=== PATIENT | male | born 1960 | race Caucasian/White ===

== ENCOUNTER 2020-01-27 10:48 | Emergency (ER) | payer MEDICARE, SELFPAY ==
[2020-01-27 11:04] VITALS: BP 147/92; PULSE 84; RESP 20; TEMP 36.4; O2SAT 100
--- NOTE | 2020-01-27 11:18 | ED.SKABFB ---
HPI - Skin/Abscess/Foreign Bdy General Chief complaint: Skin/Abscess/Foreign Body Stated complaint: Rash all over History of Present Illness HPI narrative: Patient is transition from [place] to here. Patient sister showed picture of past skin issues and states that he has been diagnosised with eczema Related Data Home Medications Medication Instructions Recorded Confirmed amlodipine 5 mg PO DAILY 01/27/20 01/27/20 aspirin 325 mg PO DAILY 01/27/20 01/27/20 atorvastatin 80 mg PO DAILY 01/27/20 01/27/20 triamcinolone acetonide 1 applic TOPICAL QID 01/27/20 01/27/20 Allergies Allergy/AdvReac Type Severity Reaction Status Date / Time No Known Allergies Allergy Verified 01/27/20 11:24 Review of Systems Review of Systems: Narrative: CONSTITUTIONAL: Denies fever, chills, or sweats. EYES: Denies visual changes, redness, or discharge. ENT: Denies rhinorrhea, congestion, sore throat, or otalgia. CARDIOVASCULAR:Denies chest pain, palpitations, or edema. RESPIRATORY: Denies cough or dyspnea. GASTROINTESTINAL: Denies abdominal pain, nausea, vomiting, or diarrhea. GENITOURINARY: Denies dysuria or hematuria. SKIN:positive rash or itching. MUSCULOSKELETAL:Denies back pain, joint pain, or myalgia. NEUROLOGIC: Denies headache, numbness, or weakness. PSYCHIATRIC:Denies anxiety or depression Just PMFSH Comments At time as signature, I have reviewed and agree with nursing past medical, social, surgical and family history. Please see nursing chart for further information. There is no relevant family history pertinent to the presenting complaint. Exam Narrative: Exam Narrative: GENERAL:Well-appearing, well-nourished, and in no acute distress. HEAD:Normocephalic, atraumatic. EYES: PERRLA and EOMI. ENT: Nares clear, no rhinorrhea or epistaxis. Mucous membranes moist. NECK: Supple. CHEST: Clear to auscultation. No respiratory distress. HEART: Regular rate and rhythm. No murmur heard. Normal peripheral pulses. ABDOMEN: Soft, nontender, nondistended, normal active bowel sounds. EXTREMITIES: Normal range of motion. No edema. SKIN: Warm, dry, dry rough skin all over skin with crack areas due to rough and skin is itchy all over with erythema rash. NEURO: No focal deficits. Alert and oriented x3. Course Vital Signs Vital signs: Vital Signs Temperature 97.5 F L 01/27/20 11:04 Pulse Rate 84 01/27/20 11:04 Respiratory Rate 01/27/20 11:04 Blood Pressure 147/92 H 01/27/20 11:04 Pulse Oximetry 100 01/27/20 11:04 Temperature 97.5 F L 01/27/20 11:04 Pulse Rate 84 01/27/20 11:04 Respiratory Rate 01/27/20 11:04 Blood Pressure 147/92 H 01/27/20 11:04 Pulse Oximetry 100 01/27/20 11:04 MDM - Skin/Abscess/Foreign Bdy Differential Diagnosis Differential diagnosis: Likely abscess of skin or subcutaneous tissue, urticaria, cellulitis, eczema, impetigo and contact dermatitis Discharge Plan Discharge Clinical Impression: Eczema Qualifiers: Eczema type: other Qualified Code(s): L30.8 - Other specified dermatitis Patient Disposition: Home, Self-Care Condition: Stable Instructions: Antibiotic Form, Eczema (ED) Additional Instructions: Use skin creams/lotion, such as those containing calamine or pramoxine to reduce itchiness Avoid scratching when possible to prevent worsening of the condition and disruption of the skin that could lead to bacterial infection To relieve itching, place a cool washcloth or some ice over the area that itches, rather than scratching Return to the office or seek ER visit if condition is not improving or worsens with fever, swelling, difficulty breathing or swallowing. You may give a bleach bath and make sure that you are using a lotion like Eucerin Lotion & Moisturizer Prescriptions: New prednisone 20 mg tablet 20 mg PO BID 5 Days Qty: 10 RF: 0 clobetasol 0.05 % cream 1 applic TOPICAL BID 14 Days RF: 0 hydroxyzine HCl 10 mg tablet 10 mg
== END 2020-01-27 11:33 | disposition home or self-care (01) ==
PROVIDERS: Emergency Provider Nurse Practitioner Family
DX: L30.8 Other specified dermatitis (principal); E78.00 Pure hypercholesterolemia, unspecified; I10 Essential (primary) hypertension
CPT/HCPCS: 99203; G0463